=== PATIENT | female | born 1985 | race African-American/Black ===

== ENCOUNTER 2022-03-07 06:07 | Emergency (ER) | payer OTHER ==
[~2022-03-07] VITALS: Ht 165.1 cm; Wt 79.4 kg
[2022-03-07] MEDS ORDERED: IBUPROFEN200 MG PO (07:08)
[2022-03-07] MEDS ORDERED: ACETAMINOPHEN500 MG PO (07:08)
== END 2022-03-07 07:21 | disposition home or self-care (01) ==
LOC: FSED 06:39
DX: S16.1XXA Strain of muscle, fascia and tendon at neck level, initial encounter (principal); R10.32 Left lower quadrant pain; V43.53XA Car driver injured in collision with pick-up truck in traffic accident, initial encounter; Y92.488 Other paved roadways as the place of occurrence of the external cause; I10 Essential (primary) hypertension; E03.9 Hypothyroidism, unspecified
CPT/HCPCS: 99283